=== PATIENT | male | born 1990 | race Caucasian/White ===

== ENCOUNTER 2016-12-09 15:14 | Emergency (ER) | payer SELFPAY ==
[2016-12-09 15:28] VITALS: BP 120/83
[2016-12-09 16:11] LABS: Basophils % (Auto) 0.6 % (0.0-1.8); Eosinophils % (Auto) 0.3 % (0.0-4.3); Hemoglobin 14.6 gm/dl (11.8-15.2); Mean Corpuscular HGB Conc 32 % (32-34); Mean Corpuscular Hemoglobin 31 pg (28-32); Mean Corpuscular Volume 94 fl (84-94); Platelet Count 255 K/mm3 (140-440); Red Blood Count 4.78 M/mm3 (3.65-5.03); Red Cell Distribution Width 13.1 % (13.2-15.2); White Blood Count 6.5 K/mm3 (4.5-11.0)
[2016-12-09 16:24] LABS: Anion Gap 18 mmol/L; BUN/Creatinine Ratio 14.44; Blood Urea Nitrogen 13 mg/dL (9-20); Calcium 9.2 mg/dL (8.4-10.2); Carbon Dioxide 27 mmol/L (22-30); Chloride 94.6 mmol/L (98-107); Glucose 80 mg/dL (75-100); Potassium 3.4 mmol/L (3.6-5.0); Sodium 136 mmol/L (137-145)
[2016-12-09 16:42] LABS: Bilirubin,Urine NEG (Negative); Blood,Urine NEG (Negative); Ketones,Urine 20 mg/dL (Negative); Nitrite,Urine NEG (Negative)
[2016-12-09 16:43] LABS: Leukocyte Esterase,Urine NEG (Negative); Mucus,Urine 3+ /HPF
[2016-12-09] MEDS ORDERED: NACL 0.9% 0 ML IR ONE (20:53)
[2016-12-09] MEDS ORDERED: NACL 0.9% 1000 ML 0 ML ONE (20:53)
== END 2016-12-09 23:00 | disposition left against medical advice (07) ==
LOC: ED 15:14
DX: R11.10 Vomiting, unspecified (principal); Z53.21 Procedure and treatment not carried out due to patient leaving prior to being seen by health care provider
CPT/HCPCS: 36415; 80048; 81001; 85025; J7030

== ENCOUNTER 2019-01-15 08:13 | Emergency (ER) | payer SELFPAY ==
[2019-01-15 08:24] VITALS: BP 134/85
== END 2019-01-15 10:31 | disposition left against medical advice (07) ==
LOC: ED 08:13
DX: Z53.21 Procedure and treatment not carried out due to patient leaving prior to being seen by health care provider (principal)